=== PATIENT | male | born 1965 | race Hispanic/Latino ===

== ENCOUNTER 2020-12-30 19:33 | Emergency (ER) | payer OTHER ==
[~2020-12-30] VITALS: Ht 177.8 cm; Wt 97.5 kg
[2020-12-30] MEDS ORDERED: 0.9%NACL 1000ML 1,000 ML IV ONE (21:30)
[2020-12-30] MEDS ORDERED: SOLU-MEDROL 125MG VIAL IVP ONE (21:30)
[2020-12-30] MEDS ORDERED: SOLU-MEDROL 125MG VIAL ONE (23:24)
[2020-12-31] MEDS ORDERED: KETOROLAC 15MG/ML VIAL (15MG/ML) IV ONE
[2020-12-31 02:00] VITALS: BP 132/74
[2020-12-31] MEDS ORDERED: MECL-226 PO (03:46)
[2020-12-31] MEDS ORDERED: METH4TAB3 PO (03:47)
== END 2020-12-31 04:05 | disposition home or self-care (01) ==
LOC: EDH 19:33
DX: B34.9 Viral infection, unspecified (principal); E86.0 Dehydration; R42 Dizziness and giddiness; Z79.52 Long term (current) use of systemic steroids
CPT/HCPCS: 87804 ×2; 96361; 96374; 96375; 99285; J1885; J2930